=== PATIENT | male | born 1960 | race African-American/Black ===

== ENCOUNTER 2018-04-19 10:12 | Inpatient (IN) | payer OTHER ==
[~2018-04-19] VITALS: Ht 190.5 cm; Wt 95.7 kg
--- NOTE | 2018-04-19 11:40 | ED CARDIAC/CP/PALPITATIONS ---
History of Present Illness General Chief Complaint: Chest Pain Stated Complaint: LEFT SIDED CHEST PAIN,RADIATING TO LT ARM AND NECK Source: patient Exam Limitations: no limitations Vital Signs & Intake/Output Vital Signs & Intake/Output Vital Signs Date Time Temp Pulse Resp B/P B/P Pulse O2 O2 Flow FiO2 Mean Ox Delivery Rate 04/19 1755 98.4 72 18 143/87 99 Room Air 04/19 1417 98.8 76 18 136/86 100 04/19 1242 71 18 127/83 Room Air 04/19 1146 Room Air 04/19 1023 98.2 74 18 138/88 98 Room Air Allergies Coded Allergies: NO KNOWN ALLERGIES (11/02/11) Reconcile Medications Alogliptin Benzoate (Alogliptin) 25 MG TABLET 1 TAB PO DAILY DM (Reported) Aspirin (Ecotrin*) 81 MG TABLET.DR 1 TAB PO DAILY HEART/BLOOD (Reported) Atenolol 50 MG TABLET 1 TAB PO DAILY BP (Reported) Clopidogrel Bisulfate (Clopidogrel) 75 MG TABLET 1 TAB PO DAILY BLOOD THINNER (Reported) Insulin Glargine,Hum.rec.anlog (Lantus Solostar) 100 UNIT/ML (3 ML) INSULN.PEN 22 UNIT SC QPM DM (Reported) Pantoprazole Sodium 40 MG TABLET.DR 1 TAB PO DAILY GI (Reported) Ranolazine (Ranexa) 500 MG TAB.ER.12H 2 TAB PO BID HEART (Reported) Rosuvastatin Calcium (Crestor) 40 MG TABLET 1 TAB PO DAILY CHOLESTEROL ( Reported) Triage Note: 57 YO MALE TO TRIAGE FOR EVAL OF L SIDED CP RADIATING TO L ARM AND L SIDE OF NECK SINCE APPROX 0800. +SOB. Triage Nurses Notes Reviewed? yes Onset: Abrupt Duration: hour(s):, constant, continues in ED Timing: recent history Quality/Severity: moderate, severe HPI: 57-year-old male comes into the emergency room with complaints of left-sided chest pain that began between 7:30 and 8 AM this morning. Patient reports that he has a history of coronary disease with 2 stents. The pain radiates to his left neck and down his left arm. Earlier this morning he had some associated shortness of breath and diaphoresis but those symptoms have resolved but he is still having persistent pain in the left side of his chest. He reports that he had a recent cardiac catheterization with a told him that he had a complete blockage in one of the branches. They are talking about going in there and stenting it potentially but are not sure at this time. He sees Dr. summers out of [place]. Past History Travel History Traveled to [place] past 21 day No Medical History Any Pertinent Medical History? see below for history Cardiovascular: CAD, hyperlipidemia, [place] Endocrine: diabetes Surgical History Surgical History: non-contributory Psychosocial History Who do you live with Spouse Services at Home None What is your primary language Tristanian Tobacco Use: Quit >30 days ago Family History Hx Contributory? No Review of Systems Review of Systems Constitutional: Reports: no symptoms. EENTM: Reports: no symptoms. Respiratory: Reports: see HPI. Cardiovascular: Reports: see HPI. GI: Reports: see HPI. Genitourinary: Reports: no symptoms. Musculoskeletal: Reports: no symptoms. Skin: Reports: no symptoms. Neurological/Psychological: Reports: no symptoms. Hematologic/Endocrine: Reports: no symptoms. Immunologic/Allergic: Reports: no symptoms. All Other Systems: Reviewed and Negative Physical Exam Physical Exam General Appearance: well developed/nourished, no apparent distress, alert, awake Head: atraumatic, normal appearance Eyes: Bilateral: normal appearance. Ears, Nose, Throat: normal ENT inspection, hearing grossly normal Neck: normal inspection Respiratory: no respiratory distress Cardiovascular: regular rate/rhythm Back: normal inspection Extremities: normal inspection Skin: intact, normal color Core Measures ACS in differential dx? Yes CVA/TIA Diagnosis No Sepsis Present: No Sepsis Focused Exam Completed? No Progress Differential Diagnosis: AMI, CHF/pulm edema, hyperthyroid, musculoskeletal pain, myocarditis, pancreatitis, pericarditis, pneumonia, pneumothorax, pulmonary embolism, unstable angina Plan of Care: Orders Procedure Date/time Status Heart Healthy Diet 04/20 B Active CBC WITHOUT DIFFERENTIAL 04/20 06 Active BASIC ELECTROLYTES PLUS BUN&CR 04/20 0600 Active Consistent Carbohydrate 2 04/19 D Complete TROPONIN LEVEL 04/19 2045 Active EKG 04/19 2045 Active Pathway - chart 04/19 1823 Active Pathway - chart 04/19 1822 Active Patient Data 04/19 1822 Active Code Status 04/19 1822 Active Patient Data 04/19 1623 Active Admit to inpatient 04/19 1611 Active Vital Signs 04/19 1611 Active Code Status 04/19 1611 Complete TROPONIN LEVEL 04/19 1450 Active EKG 04/19 1450 Active THYROID STIMULATING HORMONE 04/19 1443 Active TOTAL TRIODOTHYROXINE 04/19 1443 Active MAGNESIUM 04/19 1443 Active LIPID PANEL 04/19 1443 Active FREE T4 04/19 1443 Active Intake & Output 04/19 1146 Active GLYCOSYLATED HGB 04/19 1144 Active TROPONIN LEVEL 04/19 1106 Active COMPREHENSIVE METABOLIC PANEL 04/19 1106 Active CBC WITHOUT DIFFERENTIAL 04/19 1106 Complete EKG 04/19 1013 Active Pathway - chart 04/19 UNK Active House Staff 04/19 UNK Active Lab Add-on Test 04/19 UNK Active VTE Mechanical Prophylaxis 04/19 UNK Active Telemetry/Private Inquiry Agent 04/19 UNK Active FingerStick- Glucose 04/19 UNK Active CASE MANAGEMENT CONSULT 04/19 UNK Active Current Medications Sig/Richa Start time Last Medication Dose Stop Time Status Admin Atorvastatin Calcium 40 MG 1700 04/20 1700 UNVr (Lipitor) Aspirin Buffered 81 MG DAILY 04/20 09 UNVr (Ecotrin) Atenolol 50 MG DAILY 04/20 09 UNVr (Tenormin) Clopidogrel Bisulfate 75 MG DAILY 04/20 09 UNVr (Plavix) Multivitamins 1 TAB DAILY 04/20 09 UNVr (Theragran Vitamins) Omeprazole 40 MG DAILY AC 04/20 0700 UNVr (Prilosec) Insulin Aspart 0 TIDAC/HS 04/19 2100 UNVr (NovoLOG) Ranolazine 1,000 MG BID 04/19 2100 UNVr (Ranexa) Acetaminophen 650 MG Q6P PRN 04/19 183 UNVr (Tylenol) Nitroglycerin 0.5 GM Q6 PRN 04/19 183 UNVr (Nitro-Bid) Oxycodone HCl 5 MG Q6H PRN 04/19 1830 UNVr (Roxicodone) Oxycodone/ 1 TAB Q6P PRN 04/19 183 UNVr Acetaminophen (Percocet) Enoxaparin Sodium 30 MG DAILY 04/19 181 UNVr (Lovenox) Laboratory Tests 04/19/18 1443: Magnesium Pending, Troponin I 0.02, Triglycerides Pending, Cholesterol Pending, LDL Cholesterol, Calc Pending, HDL Cholesterol Pending, Cholesterol/HDL Ratio Pending, TSH Pending, Free T4 Pending, Total T3 Pending 04/19/18 1144: Anion Gap 11, Estimated GFR > 60, BUN/Creatinine Ratio 17.5, Glucose 155 H, Hemoglobin A1c Pending, Calcium 9.8, Total Bilirubin 0.6, AST 34, ALT 31, Alkaline Phosphatase 95, Troponin I 0.03, Total Protein 8.2, Albumin 4.9, Globulin 3.3, Albumin/Globulin Ratio 1.5, CBC w Diff NO MAN DIFF REQ, RBC 4.80, MCV 82.2, MCH 28.0, MCHC 34.0, RDW 15.1 H, MPV 8.8, Gran % 66.3, Lymphocytes % 21.0, Monocytes % 8.4, Eosinophils % 3.1, Basophils % 1.2, Absolute Granulocytes 2.8, Absolute Lymphocytes 0.9 L, Absolute Monocytes 0.4, Absolute Eosinophils 0.1, Absolute Basophils 0.1 Diagnostic Imaging: Viewed by Me: Radiology Read. Discussed w/RAD: Radiology Read. Radiology Impression: PATIENT: WILMAR BUTTERFIELD PRESENT AGE: 57 PATIENT ACCOUNT NO: [id number] : 60 LOCATION: [facility] ORDERING PHYSICIAN: Nahomy Noriega PA-C SERVICE DATE: 04/19/18-110 EXAM TYPE: RAD - XRY-CHEST XRAY, TWO VIEWS EXAMINATION: XR CHEST CLINICAL INFORMATION: Chest pain. COMPARISON: 10/24/2011 TECHNIQUE: 2 views of the chest were obtained. FINDINGS: The lungs are well-inflated and clear. Trachea is midline in position. No interstitial disease, consolidation, mass, pneumothorax or pleural effusion. The cardiac silhouette is normal in size. The mediastinal, hilar and diaphragmatic contours are normal. The skeletal structures are unremarkable. The visualized upper abdomen is normal. IMPRESSION: No acute pulmonary disease. DICTATED BY: Shad Davis MD DATE/TIME DICTATED:04/19/181199 FOREIGN SERVICE OFFICER:AYLEEN DATE/TIME TRANSCRIBED:04/19/181199 CONFIDENTIAL, DO NOT COPY WITHOUT APPROPRIATE AUTHORIZATION. <Electronically signed in Other Vendor System> SIGNED BY: Shad Davis MD 04/19/18 1203 Initial ED EKG: normal sinus rhythm, rate (71), RBBB Repeat EKG: unchanged Comments: 04/19/2018 6:47:48 PM This case required multiple phone calls to the patient's slab puller. It was decided that the patient would be admitted overnight for further observation. There is no need for an immediate cardiac catheterization. The patient has a blocked right coronary artery according to his slab puller who recently did a cardiac catheterization. Apparently it is a very complex procedure and they are going to schedule him next week for a repeat cardiac catheterization to try to make the right coronary artery patent. Troponins are negative at htis time but patient is high risk. Departure Departure Disposition: STILL A PATIENT Condition: Stable Clinical Impression Primary Impression: Unstable angina Referrals: Neha Bella MD (PCP/Family) Departure Forms: Customer Survey General Discharge Information Admission Note Spoke With: Esperanza CRAIG,Semaj Documentation of Exam: Documentation of any treatments & extenuating circumstances including Concerns Regarding Discharge (functional status, medication knowledge or non-compliance, living conditions, etc.) that warrant an admission rather than observation: Cardiac telemetry. Cardiac consultation. Serial troponins. Aspirin. Spoke with the patient's slab puller Dr. MENDENHALL who agrees with admission overnight. Patient will be set up for a cardiac catheterization next week. Dr. motta spoke with hospitalist Critical Care Note Critical Care Note Critical Care Time: non-applicable
[2018-04-19 11:57] LABS: ABSOLUTE BASOPHIL COUNT 0.1 /CUMM (0.0-0.2); ABSOLUTE EOSINOPHIL COUNT 0.1 /CUMM (0.0-0.7); ABSOLUTE GRANULOCYTE CT 2.8 /CUMM (1.4-6.5); ABSOLUTE LYMPH COUNT 0.9 /CUMM (1.2-3.4); ABSOLUTE MONOCYTE COUNT 0.4 /CUMM (0.10-0.60); BASOPHIL % 1.2 % (0.0-2.0); EOSINOPHIL % 3.1 % (0-5); GRANULOCYTE % 66.3 % (42.2-75.2); HEMATOCRIT 39.5 % (42-52); MEAN CORPUSCULAR VOLUME 82.2 FL (80.0-94.0); MEAN PLATELET VOLUME 8.8 FL (7.4-10.4); PLATELET COUNT 258 /CUMM (130-400); RBC DISTRIBUTION WIDTH 15.1 % (11.5-14.5); WHITE BLOOD CELL COUNT 4.2 /CUMM (4.8-10.8)
--- NOTE | 2018-04-19 12:04 | RADIOLOGY REPORT ---
EXAMINATION: XR CHEST CLINICAL INFORMATION: Chest pain. COMPARISON: 10/24/2011 TECHNIQUE: 2 views of the chest were obtained. FINDINGS: The lungs are well-inflated and clear. Trachea is midline in position. No interstitial disease, consolidation, mass, pneumothorax or pleural effusion. The cardiac silhouette is normal in size. The mediastinal, hilar and diaphragmatic contours are normal. The skeletal structures are unremarkable. The visualized upper abdomen is normal. IMPRESSION: No acute pulmonary disease.
[2018-04-19] MEDS ORDERED: LANTUS SOL100 UNIT/1 SC (17:57)
[2018-04-19] MEDS ORDERED: CLOPIDOGREL75 M1 PO (17:57)
[2018-04-19] MEDS ORDERED: RANEXA500 M1 PO (17:57)
[2018-04-19] MEDS ORDERED: PANTOPRAZOLE SO40 M1 PO (17:58)
[2018-04-19] MEDS ORDERED: CRESTOR40 M2 PO (17:58)
[2018-04-19] MEDS ORDERED: ALOGLIPTIN25 MG PO (17:58)
[2018-04-19] MEDS ORDERED: ATENOLOL50 M1 PO (17:58)
[2018-04-19] MEDS ORDERED: ASPIRIN EC81 M1 PO (17:59)
--- NOTE | 2018-04-19 18:21 | Cons- Cardiology ---
General Information and HPI Consulting Request Date of Consult: 04/19/18 Requested By: Esperanza CRAIG,Semaj History of Present Illness: The patient is a 57-year-old male with history of coronary artery disease, status post stents to the LAD and circumflex with chronic total occlusion of the RCA. His director of vocational guidance is Dr. Pike at [facility]. He has had multiple recent emergency department visits for chest pain which is felt to be atypical. He saw Dr. Pike, who is considering arranging for revascularization of the chronically occluded RCA, however she is unsure whether the recent chest pain is cardiac in origin. He was brought to the [facility] emergency department today with complaint of left-sided chest pain radiating to the left neck and down the left arm. The pain has been intermittent since 8:00 AM, with multiple episodes lasting approximately 1 minute each. No shortness of breath. No abdominal pain. He notes dizziness, headache, and diaphoresis. He also notes recent nausea. No syncope. No orthopnea. He is currently pain-free. Allergies/Medications Allergies: Coded Allergies: NO KNOWN ALLERGIES (11/02/11) Home Med List: Alogliptin Benzoate (Alogliptin) 25 MG TABLET 1 TAB PO DAILY DM (Reported) Aspirin (Ecotrin*) 81 MG TABLET.DR 1 TAB PO DAILY HEART/BLOOD (Reported) Atenolol 50 MG TABLET 1 TAB PO DAILY BP (Reported) Clopidogrel Bisulfate (Clopidogrel) 75 MG TABLET 1 TAB PO DAILY BLOOD THINNER (Reported) Insulin Glargine,Hum.rec.anlog (Lantus Solostar) 100 UNIT/ML (3 ML) INSULN.PEN 22 UNIT SC QPM DM (Reported) Pantoprazole Sodium 40 MG TABLET.DR 1 TAB PO DAILY GI (Reported) Ranolazine (Ranexa) 500 MG TAB.ER.12H 2 TAB PO BID HEART (Reported) Rosuvastatin Calcium (Crestor) 40 MG TABLET 1 TAB PO DAILY CHOLESTEROL ( Reported) Current Medications: Current Medications Sig/Richa Start time Last Medication Dose Route Stop Time Status Admin Acetaminophen 650 MG Q6P PRN 04/19 1830 AC PO Aspirin 0 .STK-MED ONE 04/19 1242 DC PO Aspirin 325 MG ONCE ONE 04/19 1145 DC 04/19 PO 04/19 1146 1242 Aspirin Buffered 81 MG DAILY 04/20 0900 AC PO Atenolol 50 MG DAILY 04/20 900 AC PO Atorvastatin Calcium 40 MG 1700 04/20 1700 AC PO Clopidogrel Bisulfate 75 MG DAILY 04/20 09 AC PO Enoxaparin Sodium 40 MG DAILY 04/19 1819 AC SC Insulin Aspart 0 TIDAC 04/20 08 AC SC Insulin Aspart 0 AT BEDTIME 04/19 2100 AC SC Multivitamins 1 TAB DAILY 04/20 09 AC PO Nitroglycerin 0.5 GM Q6P PRN 04/19 183 AC TOP Omeprazole 40 MG DAILY AC 04/20 07 AC PO Oxycodone HCl 5 MG Q6P PRN 04/19 183 AC PO Oxycodone/ 1 TAB Q6P PRN 04/19 183 AC Acetaminophen PO Ranolazine 1,000 MG BID 04/19 2100 AC PO Review of Systems Review of Systems: No fever. No chills. No rash. No tremor. No melena. All other systems were reviewed, and were noted to be negative. Past History Travel History Traveled to [place] past 21 day No Medical History Cardiovascular: CAD, hyperlipidemia, [place] Endocrine: diabetes Surgical History Surgical History: non-contributory Family History Relations & Conditions If Any: MOTHER FH: heart disease Heart disease SISTER Heart disease BROTHER Heart disease Psychosocial History Services at Home: None Exam & Diagnostic Data Vital Signs and I&O Vital Signs Date Time Temp Pulse Resp B/P B/P Pulse O2 O2 Flow FiO2 Mean Ox Delivery Rate 04/19 1755 98.4 72 18 143/87 99 Room Air 04/19 1417 98.8 76 18 136/86 100 04/19 1242 71 18 127/83 Room Air 04/19 1146 Room Air 04/19 1023 98.2 74 18 138/88 98 Room Air Intake & Output 04/19 1600 04/19 0804/19 0000 04/18 1600 04/18 0804/18 0000 Intake Total 0 Output Total Balance 0 Intake, Oral 0 Patient 215 lb Weight Weight Reported by Patient Measurement Method Physical Exam: Gen: The patient is in no acute distress HEENT: Normal nose, ears, and oropharynx. Pupils equal bilaterally. Conjunctiva normal. Neck: Supple with no JVD, no masses, and no thyromegaly Lungs: Clear to auscultation with normal respiratory effort Heart: RRR, S1, S2, no murmurs. No peripheral edema, 2+ pulses in the lower extremities bilaterally Abdomen: Soft, nontender, no masses. No hepatomegaly. No splenomegaly Extremities: No clubbing or cyanosis. Normal muscle strength in the upper and lower extremities Skin: Normal skin turgor with no skin ulcers or lesions noted. Neuro: Cranial nerves intact. Sensation intact Psych: Alert and oriented x 3 with appropriate affect Labs/[place] Results: Laboratory Tests 04/19 04/19 1443 1144 Chemistry Sodium (137 - 145 mmol/L) 139 Potassium (3.5 - 5.1 mmol/L) 4.9 Chloride (98 - 107 mmol/L) 102 Carbon Dioxide (22 - 30 mmol/L) 26 Anion Gap (5 - 16) 11 BUN (9 - 20 mg/dL) 14 Creatinine (0.7 - 1.2 mg/dL) 0.8 Estimated GFR (>60 ml/min) > 60 BUN/Creatinine Ratio (7 - 25 %) 17.5 Glucose (65 - 99 mg/dL) 155 H Hemoglobin A1c (4.2 - 5.8 %) Pending Calcium (8.4 - 10.2 mg/dL) 9.8 Magnesium (1.6 - 2.3 mg/dL) 2.0 Total Bilirubin (0.2 - 1.3 mg/dL) 0.6 AST (17 - 59 U/L) 34 ALT (21 - 72 U/L) 31 Alkaline Phosphatase (< 127 U/L) 95 Troponin I (<0.11 ng/ml) 0.02 0.03 Total Protein (6.3 - 8.2 g/dL) 8.2 Albumin (3.5 - 5.0 g/dL) 4.9 Globulin (1.9 - 4.2 gm/dL) 3.3 Albumin/Globulin Ratio (1.1 - 2.2 %) 1.5 Triglycerides (<150 mg/dL) 613 H Cholesterol (< 200 MG/DL) 201 H LDL Cholesterol Direct (<100 mg/dL) Pending LDL Cholesterol, Calc (65 - 129 mg/dL) Pending HDL Cholesterol (40 - 60 mg/dL) 38 L Cholesterol/HDL Ratio (0.00 - 4.88 %) 5 H TSH (0.270 - 4.200 uIU/mL) Pending Free T4 (0.64 - 1.79 ng/dL) Pending Total T3 (0.97 - 1.69 ng/mL) Pending Hematology CBC w Diff NO MAN DIFF REQ WBC (4.8 - 10.8 /CUMM) 4.2 L RBC (4.70 - 6.10 /CUMM) 4.80 Hgb (14.0 - 18.0 G/DL) 13.4 L Hct (42 - 52 %) 39.5 L MCV (80.0 - 94.0 FL) 82.2 MCH (27.0 - 31.0 PG) 28.0 MCHC (33.0 - 37.0 G/DL) 34.0 RDW (11.5 - 14.5 %) 15.1 H Plt Count (130 - 400 /CUMM) 258 MPV (7.4 - 10.4 FL) 8.8 Gran % (42.2 - 75.2 %) 66.3 Lymphocytes % (20.5 - 51.1 %) 21.0 Monocytes % (1.7 - 9.3 %) 8.4 Eosinophils % (0 - 5 %) 3.1 Basophils % (0.0 - 2.0 %) 1.2 Absolute Granulocytes (1.4 - 6.5 /CUMM) 2.8 Absolute Lymphocytes (1.2 - 3.4 /CUMM) 0.9 L Absolute Monocytes (0.10 - 0.60 /CUMM) 0.4 Absolute Eosinophils (0.0 - 0.7 /CUMM) 0.1 Absolute Basophils (0.0 - 0.2 /CUMM) 0.1 Diagnostic Data EKG Results EKG tracings independently reviewed, and reveals normal sinus rhythm at 71, right bundle branch block, nonspecific ST-T abnormal CXR Results Negative Other Results Echocardiogram 03/29/18: ~* Normal left ventricular size and systolic function. Mild concentric left ventricular hypertrophy. ~LVEF calculated by 3DE was 61%. ~Normal diastolic function and filling pressures. * Normal right ventricular cavity size and systolic function. * Mild mitral and tricuspid valve regurgitation. * IVC diameter < 2.1 cm that collapses > 50% with a sniff suggests normal RAP (0 -5 mmHg, mean 3 mmHg). * No evidence of pericardial effusion. * Compared with the prior study, dated 09/18/2017, there is no significant change. 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 His most recent cardiac catheterization was 3 weeks ago, and he has had multiple emergency department visits at [facility] for chest discomfort which has been felt to be atypical. He presents to [facility] with recurrent chest discomfort. The chest discomfort continues to be somewhat atypical. The case was discussed with the patient's director of vocational guidance at [facility], Dr. Pike, who recommended that the if the patient rules out for myocardial infarction and is clinically stable, he can be discharged to home to follow up at [facility]. He is being considered for possible intervention as an outpatient on the chronically occluded RCA. Recommendations: * Continue aspirin and Plavix * Continue atenolol * Continue Ranexa * Nitroglycerin paste * Monitor on telemetry * Check serial troponin * If the patient rules out for myocardial infarction and is clinically stable he will likely be ready for discharge tomorrow to follow up with his director of vocational guidance at [facility]. Intervention on the chronically occluded RCA is planned to be arranged at [facility] as an outpatient. * There is no indication to repeat an echocardiogram since he had a recent echocardiogram at [facility]. Consult Acknowledgment - Thank you for your consult request.
[2018-04-19 20:31] VITALS: BP 140/90
[2018-04-19 22:30] VITALS: BP 124/84
[2018-04-20 07:13] VITALS: BP 124/80
[2018-04-20 08:00] LABS: ABSOLUTE BASOPHIL COUNT 0 /CUMM (0.0-0.2); ABSOLUTE EOSINOPHIL COUNT 0.1 /CUMM (0.0-0.7); ABSOLUTE GRANULOCYTE CT 1.8 /CUMM (1.4-6.5); ABSOLUTE LYMPH COUNT 1.1 /CUMM (1.2-3.4); ABSOLUTE MONOCYTE COUNT 0.3 /CUMM (0.10-0.60); BASOPHIL % 0.4 % (0.0-2.0); EOSINOPHIL % 3.9 % (0-5); GRANULOCYTE % 52.5 % (42.2-75.2); HEMATOCRIT 37.2 % (42-52); MEAN CORPUSCULAR HGB 28.2 PG (27.0-31.0); MEAN CORPUSCULAR HGB CONC 34.5 G/DL (33.0-37.0); MEAN CORPUSCULAR VOLUME 81.6 FL (80.0-94.0); MEAN PLATELET VOLUME 8.8 FL (7.4-10.4); PLATELET COUNT 243 /CUMM (130-400); RBC DISTRIBUTION WIDTH 15.2 % (11.5-14.5); RED BLOOD CELL CT 4.56 /CUMM (4.70-6.10); WHITE BLOOD CELL COUNT 3.4 /CUMM (4.8-10.8)
--- NOTE | 2018-04-20 08:34 | PN- Housestaff ---
[facility] 04/20/18 0833: Subjective Follow-up For: ACS Tele-Events Since Last Visit: Patient remained in sinus rhythm with heart rate between 6283 Subjective: No overnight events. Patient remained afebrile, penicillin examined this morning. Patient denied chest pain, palpitation, nausea, vomiting, chill, fever , abdominal pain dysuria. Review of Systems Constitutional: Denies: chills, fever. EENTM: Reports: no symptoms. Cardiovascular: Denies: chest pain, palpitations, syncope. Respiratory: Denies: cough, short of breath, sputum production. Gastrointestinal: Denies: abdominal pain, constipation, diarrhea, nausea, vomiting. Genitourinary: Reports: see HPI. Musculoskeletal: Reports: back pain. Neurological/Psychological: Denies: anxiety, confusion, depressed. Objective Last 24 Hrs of Vital Signs/I&O Vital Signs Date Time Temp Pulse Resp B/P B/P Pulse O2 O2 Flow FiO2 Mean Ox Delivery Rate 04/20 0713 97.6 74 20 124/80 99 Room Air 04/19 2230 98.4 71 20 124/84 97 Room Air 04/19 2123 74 140/90 04/19 2031 98.2 74 20 140/90 98 Room Air 04/19 1755 98.4 72 18 143/87 99 Room Air 04/19 1417 98.8 76 18 136/86 100 04/19 1242 71 18 127/83 Room Air 04/19 1146 Room Air 04/19 1023 98.2 74 18 138/88 98 Room Air Intake & Output 04/20 1600 04/20 0800 04/20 0000 Intake Total 200 Output Total Balance 200 Intake, Oral 200 Patient 211 lb Weight Weight Bed scale Measurement Method Physical Exam General Appearance: Alert, Oriented X3, Cooperative Skin Temp/Moisture Exam: Warm/Dry Sepsis Skin Exam (color): Normal for Ethnicity HEENT: Atraumatic, PERRLA, EOMI Neck: Supple Cardiovascular: Normal S1, Normal S2 Lungs: Clear to Auscultation Abdomen: Soft, No Tenderness Neurological: Normal Speech, Strength at 5/5 X4 Ext, Normal Tone Extremities: No Edema Assessment/Plan Assessment: 57-year-old male with past medical history of hypertension, hyperlipidemia, diabetes, CAD status post stent placement in LAD and circumflex with chronic total occlusion of RCA following Dr. Pike at [facility] came to ED with chief complaint of left-sided chest pain radiating to left neck and down to left arm. Following the patient on telemetry floor for following problems. Chest pain: -Ruling out acute coronary syndrome considering patient's past medical history of chronic RCA block. -His troponin remained negative and EKG showed nonspecific ST T-wave changes, patient is pain-free this morning. -Continue aspirin and Plavix -Continue Ranexa -Continue atenolol -Continue nitroglycerin paste for chest pain as needed -Patient will follow at [facility] outpatient for chronic occlusion of RCA for intervention. History of CAD status post stent placement: -Due to aspirin and Plavix -Continue Ranexa History of hypertension hyperlipidemia: -Continue atenolol and Lipitor with fenofibrate History of diabetes: -Accu-Cheks -Insulin NovoLog according to sliding scale -We are holding his oral antidiabetic medications. DVT prophylaxis: Mechanical and subcutaneous Lovenox CODE STATUS; Full code Problem List: 1. Chest pain Pain Ratin Pain Location: none Pain Goal: Remain pain free Pain Plan: pain pathway Tomorrow's Labs & Rationales: none Semaj Mata 04/20/18 1130: Attending MD Review Statement Attending Statement Attending MD Statement: examined this patient, discuss w/resident/PA/AUTOMOTIVE ELECTRICIAN HELPER, agreed w/resident/PA/AUTOMOTIVE ELECTRICIAN HELPER, discussed with family, reviewed EMR data (avail), discussed with nursing, discussed with case mgmt, reviewed images, amended to note Attending Assessment/Plan: 57 o/m with pmh as above and of CAD, s/p stent placement recently with catheterization performed with RCA occlusion and recommendation of medical management. Patient will be placed in telemetry monitoring for chest pain typical in high risk patient. Negative serial cardiac enzymes, cardiology consulted. ASA, statin, antiplatelet therapy, nitrates, Plan for cardiac catheterization as per cardiology on outpatient with follow up with cardiology. Stable for discharge.
[2018-04-20 09:56] VITALS: BP 124/80
--- NOTE | 2018-04-20 11:46 | Patient Discharge Instructions ---
Discharge Instructions General Discharge Information You were seen/treated for: chest pain Special Instructions: Please folow up with your PCP and lehr cutter after your discharge. Diet Continue normal diet: No Recommended Diet: Diabetic Activity Full Activity/No Limits: No Activity Self Limited: Yes Acute Coronary Syndrome Inclusion Criteria At DC or during hospital stay patient has or had the following: ACS DIAGNOSIS No Discharge Core Measures Meds if any: Prescribed or Continued at Discharge Meds if any: NOT Prescribed or Continued at Discharge Congestive Heart Failure Inclusion Criteria At DC or during hospital stay patient has or had the following: CHF DIAGNOSIS No Discharge Core Measures Meds if any: Prescribed or Continued at Discharge Meds if any: NOT Prescribed or Continued at Discharge Cerebrovascular accident Inclusion Criteria At DC or during hospital stay patient has or had the following: CVA/TIA Diagnosis No Discharge Core Measures Meds if any: Prescribed or Continued at Discharge Meds if any: NOT Prescribed or Continued at Discharge Venous thromboembolism Inclusion Criteria VTE Diagnosis No VTE Type NONE VTE Confirmed by (Test) NONE Discharge Core Measures - Per Current guidelines, there needs to be overlap - treatment for the first 5 days of Warfarin therapy. - If discharged on Warfarin prior to 5 days of - overlap therapy, the patient will need to be - assessed for post discharge needs including - *Post discharge parental anticoagulation - *Warfarin and/or parental anticoagulation education - *Follow up date to check INR post discharge At least 5 days overlap therapy as Inpatient No Meds if any: Prescribed or Continued at Discharge Note: Overlap Therapy is Warfarin and Anticoagulant Meds if any: NOT Prescribed or Continued at Discharge
[2018-04-20] MEDS ORDERED: NITROSTAT0.4 M1 SL (11:49)
--- NOTE | 2018-04-20 12:09 | Discharge Summary ---
Visit Information Visit Dates Admission Date: 04/19/18 Discharge Date: 04/20/18 Hospital Course Course Attending Physician: Semaj Mata MD Primary Care Physician: Shayne CRAIG,[facility] Course: 57-year-old male with past medical history of hypertension, hyperlipidemia, diabetes, CAD status post stent placement in LAD and circumflex with chronic total occlusion of RCA following Dr. Pike at [place] came to ED with chief complaint of left-sided chest pain radiating to left neck and down to left arm. ED course: Vitals: Temperature 98.2, pulse 74, respiratory rate 18, blood pressure 138/88, oxygen saturation 98% on room air Labs: W BC count 4.2, hemoglobin 13.4, hematocrit 39.5, platelet count 259, sodium 139, potassium 4.9, BUN 14, creatinine 0.8, glucose 155, BUN/creatinine ratio 17.5, AST 34, ALT 31, alkaline phosphatase 95, troponin 0 0.03, calcium 9.8, albumin 4.9 Chest pain: Possibly patient has chronic stable angina. Patient had recent cardiac catheterization that showed complete occlusion of RCA and he was recommended medical management. Patient was placed on telemetry floor to rule out acute coronary syndrome and monitoring for any arrhythmia or blocks. His serial troponins remain negative for any ischemic cardiac injury. Cardiology consult for placement recommendations were followed. Cardiology recommended to continue his home medications. Patient remained stable overnight no arrhythmias or blocks. Over the discharge nitroglycerin was added in his medication regimen for chest pain as needed. cardiology recommended to send the patient home and advised to follow his documentation engineer as an outpatient for possible intervention at [place]. History of CAD status post stent placement: We continued his aspirin, Plavix and ranolazine History of hypertension hyperlipidemia: Continued his atenolol, Lipitor and fenofibrate. History of diabetes: His Accu-Cheks were checked, his blood sugar levels remained within normal limits. Patient was on insulin NovoLog according to sliding scale while in the hospital. His alogliptin was held while in the hospital. DVT prophylaxis: Mechanical and subcutaneous Lovenox CODE STATUS: Full code Allergies: Coded Allergies: NO KNOWN ALLERGIES (11/02/11) Pertinent Lab Results: Chest x-ray on 04/19/2018: IMPRESSION: No acute pulmonary disease. WBC count 3.4, hemoglobin 12.8, hematocrit 37.2, platelet count 243, sodium 138, potassium 4.2, BUN 14, creatinine 0.8, troponin 0 0.02, less than 0.01 Disposition Summary Disposition Principal Diagnosis: Chest pain possible chronic stable angina Additional Diagnosis: History of CAD status post stent placement History of hypertension hyperlipidemia History of diabetes Discharge Disposition: home or self care Discharge Instructions General Discharge Information Code Status: Full Code Patient's Diet: Heart healthy diet Patient's Activity: Self-limited Follow-Up Instructions/Appts: Follow-up with your primary care physician in 1 week Follow-up neurologist in 1 week and plan for possible intervention for right coronary artery occlusion. Medications at Discharge Discharge Medications: Continue taking these medications: Ranolazine (Ranexa) 500 MG TAB.ER.12H 2 Tablet ORAL TWICE DAILY Comments: Last Taken: 04/20/18 Time: 9:00 AM Clopidogrel Bisulfate (Clopidogrel) 75 MG TABLET 1 Tablet ORAL DAILY Comments: Last Taken: 04/20/18 Time: 9:00 AM Insulin Glargine,Hum.rec.anlog (Lantus Solostar) 100 UNIT/ML (3 ML) INSULN.PEN 22 Unit SC Every night Comments: NOT GIVEN Rosuvastatin Calcium (Crestor) 40 MG TABLET 1 Tablet ORAL DAILY Comments: NOT GIVEN Pantoprazole Sodium (Pantoprazole Sodium) 40 MG TABLET. 1 Tablet ORAL DAILY Comments: PRILOSEC GIVEN SUBSTITUTE Last Taken: 04/20/18 Time: 7:00 AM Alogliptin Benzoate (Alogliptin) 25 MG TABLET 1 Tablet ORAL DAILY Comments: NOT GIVEN Atenolol (Atenolol) 50 MG TABLET 1 Tablet ORAL DAILY Comments: Last Taken: 04/20/18 Time: 9:00 AM Aspirin (Ecotrin*) 81 MG TABLET.DR 1 Tablet ORAL DAILY Comments: Last Taken: 04/20/18 Time: 9:00 AM Start taking the following new medications: Nitroglycerin (Nitrostat) 0.4 MG TAB.SUBL 1 Tablet SUBLINGUAL As Directed Qty = 100 No Refills Instructions: 1st sign of attack; may repeat every 5 minutes until relief; if pain persists after 3 tablets in 15 minutes, prompt medical att Comments: 1st sign of attack; may repeat every 5 minutes until relief; if pain persists after 3 tablets in 15 minutes, prompt medical att Copies To: Neha Bella MD, MD Review Statement Documenting Attending: Esperanza CRAIG,Semaj
== END 2018-04-20 13:45 | DRG 303 ==
LOC: ERH 10:12 → ERHI 16:11 → ENRESERV 17:16 → ENTRNSPT 18:03 → EDTRNSPTSTS 18:07 → EDTRNSPT 18:07 → 1NO 18:26 → CMPTRNSPT 18:37 → 1NO 04-20 13:45
PROVIDERS: Physician Assistant Medical; Student in an Organized Health Care Education/Training Program
DX: I25.118 Atherosclerotic heart disease of native coronary artery with other forms of angina pectoris (principal); E78.5 Hyperlipidemia, unspecified; I10 Essential (primary) hypertension; I25.10 Atherosclerotic heart disease of native coronary artery without angina pectoris; Z98.61 Coronary angioplasty status; E11.9 Type 2 diabetes mellitus without complications; Z79.4 Long term (current) use of insulin; I25.2 Old myocardial infarction
CPT/HCPCS: 1NSP; 36592; 71046; 82436; 93005; 93010; J1650